=== PATIENT | male | born 1960 | race Caucasian/White ===

== ENCOUNTER 2018-08-15 07:39 | Emergency (ER) | payer SELFPAY ==
[2018-08-15 08:01] LABS: HEMOGLOBIN 12.8 gm/dl (14.0-18.0); MEAN CELL VOLUME 98.7 fl (81-97); MEAN CORPUSCULAR HEMOGLOBIN 32.4 pg (27-33); MEAN CORPUSCULAR HGB CONC 32.8 g/dl (32-36); MEAN PLATELET VOLUME 8.5 fl (7.4-10.4); PLATELET COUNT 402 K/uL (130-400); RED BLOOD COUNT 3.95 M/uL (4.40-5.70); RED CELL DISTRIBUTION WIDTH 13.2 % (11.5-14.5); WHITE BLOOD COUNT W/O DIFF 7.5 K/uL (4.2-12.2)
[2018-08-15 08:12] LABS: INR 1.1; PARTIAL THROMBOPLASTIN TIME 29.9 SECONDS (24.5-39.1); PROTHROMBIN TIME (PATIENT) 10.7 SECONDS (9.5-12.1)
[2018-08-15 08:15] LABS: BLOOD UREA NITROGEN 24 mg/dL (6-20); CREATININE 0.9 mg/dL (0.7-1.2); EST GLOMERULAR FILTRATION RATE > 60 mL/min; TOTAL PROTEIN 7.1 g/dL (6.6-8.7)
[2018-08-15 08:17] LABS: GLUCOSE,RANDOM 93 mg/dL (74-109)
[2018-08-15 08:20] LABS: ALBUMIN 3.5 g/dL (4.0-5.0); ALKALINE PHOSPHATASE 180 U/L (55-149); ALT/SGPT 20 U/L (<41); AST/SGOT 16 U/L (10.0-50.0); DILANTIN-PHENYTOIN 16.9 ug/mL (10-20)
--- NOTE | 2018-08-15 08:52 | Emergency Department Record ---
History of Present Illness - General Chief Complaint: Chest Pain Stated Complaint: DEFIB ALARMING Time Seen by Provider: 08/15/18 07:51 Source: Patient Mode of Arrival: Ambulatory Limitations: No limitations - History of Present Illness Initial Comments: The patient is here due to his newly placed AICD alarming a half hour prior to presenting to the ER. He states he was just sitting in a chair and the AICD alarmed for about 3-4 seconds. He was not shocked and had no symptoms prior. Since he also has felt well. The patient recently had an PR and had the AICD placed 12 days ago at [facility]. He was just discharged 4 days ago. He denies any recent illnesses since discharge. Onset/Timin -: Minutes(s) Onset: Other Consistency: Other Improves With: Nothing Worsens With: Nothing Context: Other Treatments Prior to Arrival: None - Related Data Home Medications Medication Instructions Recorded Confirmed Last Taken Amiodarone HCl 400 mg PO BID 08/15/18 08/15/18 08/15/18 Atorvastatin Calcium [Lipitor] 40 mg PO DAILY 08/15/18 08/15/18 08/14/18 Clopidogrel Bisulfate [Plavix] 75 mg PO DAILY 08/15/18 08/15/18 08/15/18 Lisinopril 2.5 mg PO DAILY 08/15/18 08/15/18 08/14/18 Metoprolol Succinate [Toprol Xl] 25 mg PO DAILY 08/15/18 08/15/18 08/14/18 Nitroglycerin [Nitrostat] 0.4 mg SL ASDIR 08/15/18 08/15/18 Unknown Allergies Allergy/AdvReac Type Severity Reaction Status Date / Time No Known Drug Allergies Allergy Verified 08/15/18 07:43 Travel Screening - Travel/Exposure Within Last 30 Days Have you traveled within the last 30 days?: No - Travel/Exposure Within Last Year Have you traveled outside the [place] in the last year?: No - Additonal Travel Details Have you been exposed to anyone with a communicable illness?: No - Travel Symptoms Symptom Screening: None Review of Systems Constitutional: Denies: Chills, Fever ENT: Denies: Congestion Respiratory: Denies: Cough, Dyspnea Cardiovascular: Denies: Arrhythmia, Chest pain Endocrine: Denies: Fatigue Gastrointestinal: Denies: Abdominal pain Genitourinary: Denies: Dysuria Musculoskeletal: Denies: Arthralgia Skin: Denies: Bruising Neurological: Denies: Abnormal gait, Confusion Past Medical History - SOCIAL HISTORY Smoking Status: Former smoker Alcohol Use: None Drug Use: None - RESPIRATORY Hx Respiratory Disorders: No - CARDIOVASCULAR Hx Cardio Disorders: Yes Hx Heart Attack: Yes (@ age 46) - NEURO Hx Neuro Disorders: Yes Hx Seizures: Yes (Epilepsy) - GI Hx GI Disorders: No - Hx Genitourinary Disorders: No - ENDOCRINE Hx Endocrine Disorders: No - MUSCULOSKELETAL Hx Musculoskeletal Disorders: No - PSYCH Hx Psych Problems: No - HEMATOLOGY/ONCOLOGY Hx Hematology/Oncology Disorders: No Family Medical History Any Significant Family History?: Yes Hx Cancer: Mother *Cancer Comment: colon Physical Exam - General General Appearance: Alert, Oriented x3, Cooperative, No acute distress - Head Head exam: Atraumatic, Normocephalic, Normal inspection - Eye Eye exam: Normal appearance, PERRL, EOMI - ENT Throat exam: Normal inspection. negative: Tonsillar erythema, Tonsillar exudate - Neck Neck exam: Normal inspection, Full ROM. negative: Tenderness - Respiratory Respiratory exam: Normal lung sounds bilaterally. negative: Respiratory distress - Cardiovascular Cardiovascular Exam: Regular rate, Normal rhythm, Normal heart sounds - GI/Abdominal GI/Abdominal exam: Soft, Normal bowel sounds. negative: Tenderness - Extremities Extremities exam: Normal inspection, Full ROM, Normal capillary refill. negative: Tenderness - Neurological Neurological exam: Alert, Normal gait. negative: Abnormal gait, Motor sensory deficit Course Vital Signs 08/15/18 07:47 Temperature 98 F Pulse Rate 75 Respiratory 20 Rate Blood Pressure 132/85 Pulse Ox 99 - Reevaluation(s) Reevaluation #1: The patient is doing well at this time. He denies any symptoms. I did discuss the case with DR. Nixon at [facility] and he would like to directly admit the patient to [facility]. 08/15/18 08:51 Medical Decision Making - Data Complexity MDM Data: Labs Ordered and/or Reviewed, EKG Ordered and/or Reviewed - Lab Data Result diagrams: 08/15/18 07:50 08/15/18 07:50 Lab Results 08/15/18 08/15/18 08/15/18 Range/Units 07:50 07:50 07:50 WBC 7.5 (4.2-12.2) K/uL RBC 3.95 L (4.40-5.70) M/uL Hgb 12.8 L (14.0-18.0) gm/dl Hct 39.0 L (42.0-52.0) % MCV 98.7 H (81-97) fl MCH 32.4 (27-33) pg MCHC 32.8 (32-36) g/dl RDW 13.2 (11.5-14.5) % Plt Count 402 H (130-400) K/uL MPV 8.5 (7.4-10.4) fl Neutrophils % 66.0 (47-80) % Band Neutrophils % 2.0 (0-5) % Eosinophils % Not Reportable Basophils % Not Reportable Lymphocytes 26.0 (16-45) % Monocytes 6.0 (0-9) % Basophils 0.0 (0-6) % Eosinophil Count 0.0 (0-6) % PT 10.7 (9.5-12.1) SECONDS INR 1.1 APTT 29.9 (24.5-39.1) SECONDS Sodium 139 (136-145) mmol/L Potassium 4.3 (3.4-4.5) mmol/L Chloride 101 (98-107) mmol/L Carbon Dioxide 26.0 (22-29) mmol/L Anion Gap 12.0 (7-16) BUN 24 H (6-20) mg/dL Creatinine 0.9 (0.7-1.2) mg/dL Estimated GFR > 60 mL/min Random Glucose 93 (74-109) mg/dL Calcium 8.7 (8.6-10.0) mg/dL Total Bilirubin 0.20 (0.2-1.0) mg/dL AST 16 (10.0-50.0) U/L ALT 20 (<41) U/L Alkaline Phosphatase 180 H (55-149) U/L Troponin T 0.943 H* (0-0.010) ng/mL Total Protein 7.1 (6.6-8.7) g/dL Albumin 3.5 L (4.0-5.0) g/dL Globulin 3.6 (1.4-4.8) gm/dL Albumin/Globulin Ratio 1.0 L (1.1-1.8) Phenytoin 16.9 (10-20) ug/mL - EKG Data -: EKG Interpreted by Me (NSR with vent pacing.) Disposition Disposition: Discharge Clinical Impression: AICD malfunction Qualifiers: Encounter type: initial encounter Qualified Code(s): T82.118A - Breakdown ( mechanical) of other cardiac electronic device, initial encounter Disposition: Acute Care Hospital Transfer Transfer To: [facility] Reason For Transfer: EP Accepting Physician: Hussain Time Discussed w/Accepting Physician: 08:53 Condition: (2) Stable Forms: Patient Portal Access Time of Disposition: 08:53 Quality - Quality Measures Quality Measures: N/A - Blood Pressure Screening View Details: Yes Does Patient Have Any of the Following: No Blood Pressure Classification: Pre-Hypertensive BP Reading Systolic Measurement: 108 Diastolic Measurement: 80 Screening for High Blood Pressure: < Pre-Hypertensive BP, F/U Documented > [ G8950] Pre-Hypertensive Follow-up Interventions: Referral to alternative/primary care provider.
== END 2018-08-15 11:35 | disposition short-term general hospital (02) ==
LOC: ER 07:39
DX: T82.118A Breakdown (mechanical) of other cardiac electronic device, initial encounter (principal); I25.2 Old myocardial infarction; Z87.891 Personal history of nicotine dependence
CPT/HCPCS: 80053; 80185; 84484; 85027; 85610; 85730; 93005; 93010; 99285

== ENCOUNTER 2018-10-22 21:11 | Emergency (ER) | payer SELFPAY ==
--- NOTE | 2018-10-22 21:27 | Emergency Department Record ---
History of Present Illness - General Chief complaint: ENT Stated complaint: SPIT UP BLOOD Time Seen by Provider: 10/22/18 21:21 Source: Patient, Family (daughter) Mode of Arrival: Ambulatory Limitations: No limitations - History of Present Illness Initial comments: Pt to ED with complaint of coughing up a small amount of bright red blood. Pt with recent illness with sinus congestion and sore throat. No fever. Pt states he has not had a cough and feels the blood was in his throat and he coughed to clear it out. Non smoker. Hx of oral abscess in past. No change in voice or difficulty with swallowing or breathing. No hx lung disease or cancer. Onset/Timin -: Days(s) Location: R ear Severity: Moderate Severity scale (1-10): 6 Quality: Aching Consistency: Intermittent Improves with: Other Worsens with: Swallowing Associated Symptoms: Pain with swallowing, Sore throat - Related Data Previous Rx's Medication Instructions Recorded Amoxicillin 500Mg Capsule [Amoxil] 1,000 mg PO BID 7 Days #28 tab 10/22/18 Allergies Allergy/AdvReac Type Severity Reaction Status Date / Time No Known Drug Allergies Allergy Verified 08/15/18 07:43 Travel Screening - Travel/Exposure Within Last 30 Days Have you traveled within the last 30 days?: No - Travel Symptoms Symptom Screening: None Review of Systems Constitutional: Denies: Chills, Fever, Weakness Eyes: Denies: Eye discharge, Photophobia ENT: Reports: Congestion, Throat pain. Denies: Ear pain, Epistaxis Respiratory: Reports: Hemoptysis. Denies: Cough, Wheezes Cardiovascular: Denies: Arrhythmia, Chest pain, Palpitations Endocrine: Denies: Fatigue, Polydipsia Gastrointestinal: Denies: Abdominal pain, Nausea, Vomiting Genitourinary: Denies: Frequency Musculoskeletal: Denies: Back pain Skin: Denies: Bruising Neurological: Denies: Abnormal gait, Headache Psychiatric: Denies: Anxiety Hematological/Lymphatic: Denies: Anemia Past Medical History - SOCIAL HISTORY Smoking Status: Former smoker Drug Use: None - RESPIRATORY Hx Respiratory Disorders: No - CARDIOVASCULAR Hx Cardio Disorders: Yes Hx Heart Attack: Yes (@ age 46) - NEURO Hx Neuro Disorders: Yes Hx Seizures: Yes (Epilepsy) - GI Hx GI Disorders: No - Hx Genitourinary Disorders: No - ENDOCRINE Hx Endocrine Disorders: No - MUSCULOSKELETAL Hx Musculoskeletal Disorders: No - PSYCH Hx Psych Problems: No - HEMATOLOGY/ONCOLOGY Hx Hematology/Oncology Disorders: No Family Medical History Hx Cancer: Mother *Cancer Comment: colon Physical Exam - General General Appearance: Alert, Oriented x3, Cooperative, No acute distress - Head Head exam: Normal inspection - Eye Eye exam: Normal appearance, PERRL - ENT ENT exam: Mucous membranes moist, TM's normal bilaterally Ear exam: Normal external inspection Nasal Exam: Normal inspection. negative: Sinus tenderness Mouth exam: Normal external inspection, Tongue normal. negative: Drooling, Laceration, Muffled voice, Tongue elevation Throat exam: Tonsillar erythema (pt with asymetry of the tonsils, the right is enlarged and appraoches the midline. Left is normal. Airway is patent. No mass noted. No abscess suspected or seen. ) - Neck Neck exam: Normal inspection, Full ROM. negative: Lymphadenopathy, Tenderness - Respiratory Respiratory exam: Normal lung sounds bilaterally. negative: Respiratory distress - Cardiovascular Cardiovascular Exam: Regular rate, Normal rhythm, Normal heart sounds - GI/Abdominal GI/Abdominal exam: Soft, Normal bowel sounds. negative: Tenderness - Extremities Extremities exam: Normal inspection - Back Back exam: Reports: Normal inspection - Neurological Neurological exam: Alert, Normal gait, Oriented X3 - Psychiatric Psychiatric exam: Normal affect - Skin Skin exam: Normal color. negative: Rash Course Vital Signs 10/22/18 21:16 Temperature 98.5 F Pulse Rate [ 87 Pulse Ox Probe] Respiratory 16 Rate Blood Pressure 123/88 [Left Arm] Pulse Ox 98 - Reevaluation(s) Reevaluation #1: 10/22/18 22:07 CXR negative. Pt on Plavix. There is asymmetry of the tonsils with the right being enlarged and erythema. Strep screen neg. Pt does have a hx of oral abscess in that area. Concern for asymmetry. If not resolved in one week on AB recommend ENT eval. Pt has [facility]. Daughter and pt agree with plan. Disposition Disposition: Discharge Clinical Impression: Acute erythematous tonsillitis Disposition: Home, Self-Care Condition: (1) Good Instructions: Tonsillitis (ED) Additional Instructions: Complete antibiotic as instructed and recheck with your family doctor in one week. If the right tonsil is still asymmetric recommend ENT evaluation. Prescriptions: Amoxicillin 500Mg Capsule [Amoxil] 1,000 mg PO BID 7 Days #28 tab Forms: Patient Portal Access Quality - Quality Measures Quality Measures: N/A - Blood Pressure Screening Does Patient Have Any of the Following: No, Active Dx of HTN Blood Pressure Classification: Pre-Hypertensive BP Reading Systolic Measurement: 123 Diastolic Measurement: 88 Screening for High Blood Pressure: Patient Exclusion, Hx of HTN [G9744]
[2018-10-22] MEDS ORDERED: AMOXICILLIN 500MG CAPSULE PO ONE (22:11)
== END 2018-10-22 22:19 | disposition home or self-care (01) ==
LOC: ER 21:11
DX: J03.90 Acute tonsillitis, unspecified (principal); R04.2 Hemoptysis; I25.2 Old myocardial infarction; I10 Essential (primary) hypertension; Z87.891 Personal history of nicotine dependence; Z79.01 Long term (current) use of anticoagulants
CPT/HCPCS: 71046; 87880; 99283; 99284